=== PATIENT | male | born 1990 | race Caucasian/White ===

== ENCOUNTER 2020-11-17 07:36 | Emergency (ER) | payer SELFPAY ==
[~2020-11-17] VITALS: Ht 165.1 cm; Wt 68.1 kg
[2020-11-17] MEDS ORDERED: NS IV 1000 ML 1,000 ML IV SCH (08:30)
[2020-11-17] MEDS ORDERED: LORazepam INJ 2 MG/ML (ATIVAN) VIAL IVP ONE (08:30)
--- NOTE | 2020-11-17 08:43 | ED Psychosocial ---
General Chief Complaint: General Problems/Pain Stated Complaint: ANXIETY,STOMACH PAIN,TENSE Nursing Triage Note: AMB TO ROOM REPORTS HAS HX OF ANXIETY HIS LEG ARE FEELNG NUMB C/O NAUSEA C/O ABD PAIN REPORTS WAS DRIVING TO [place] WHEN HE FELT LIKE HE MAY PASS OUT. HAS BEEN AT [facility] FOR [facility] 2 WEEKS AGO. PATIENT APPEARS ANXIOUS ON ADMIT. REPORTS HAS HAD BOTH COVID VACCINE. AMD DOES DRINK VODKA DAILY Source: patient Exam Limitations: no limitations History of Present Illness Date Seen by Provider: Nov 17, 2020 Time Seen by Provider: 07:55 Initial Comments Patient is a 30-year-old male who presents to the emergency department this morning with a chief complaint of feeling like he is having a panic attack, increasing anxiety diffuse muscle cramping paresthesias to his right side and left upper quadrant abdominal discomfort. Patient states that he woke up at 3:00 this morning with palpitations and as he was getting ready to go to work became nauseated and his symptoms all worsened. Patient has had a couple of prior episodes similar to this but not as severe. He was hospitalized about 2 weeks ago at [facility] with similar symptoms and tongue swelling, what sounds like carpopedal spasm. He has been taking trazodone to help alleviate his anxiety and he feels like it has helped for the most part. He states he has not been really compliant with therapy. He was spoken with about detox through [place] during his hospitalization and he feels like it may be a good idea. He drinks at most a little over a pint of alcohol a day but has been cutting back over the last several weeks to drinking only a few shots last night. He states that he started drinking at around 8. He also uses marijuana occasionally. 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 He denies any recent fevers, chills, productive cough. He does state that he "throws up phlegm" every morning. He states he is "itchy". No problems with bowel or bladder. No sick contacts. All other review of systems reviewed and negative except as stated above. Timing/Duration: just prior to arrival Severity: severe Associated Symptoms: anxiety, suicidal ideation Allergies and Home Medications Allergies Coded Allergies: Penicillins (Verified Allergy, Unknown, 11/17/20) Home Medications Hydroxyzine Pamoate 25 Mg Capsule, 25 MG PO Q6H PRN for ANXIETY Prescribed by: PETROS RAO on 11/17/20 1037 Ondansetron 4 Mg Tab.rapdis, 4 MG PO Q8H PRN for nausea and vomiting Prescribed by: PETROS RAO on 11/17/20 1037 Patient Home Medication List Home Medication List Reviewed: Yes Review of Systems Constitutional: see HPI EENTM: nose congestion Respiratory: no symptoms reported Cardiovascular: palpitations Gastrointestinal: LUQ Genitourinary: no symptoms reported Musculoskeletal: no symptoms reported Skin: pruritus Psychiatric/Neurological: Anxiety, Depressed, Paresthesia (Right-sided), Tremors Past Iakggck-Pjcebt-Dmuwfq Hx Patient Social History Alcohol Use: Regular Use Alcohol Beverage of Choice: Vodka Smoking Status: Never a Smoker Recent Infectious Disease Expo: No Past Medical History Surgeries: No Respiratory: No Cardiac: Yes Hypertension Genitourinary: No Gastrointestinal: No Musculoskeletal: No Endocrine: No HEENT: No Cancer: No Psychosocial: Yes Anxiety Integumentary: No Physical Exam Vital Signs - First Documented 11/17/20 07:47 Temp 36.8 Pulse 115 Resp 18 B/P (MAP) 211/133 (159) Pulse Ox 98 O2 Delivery Room Air Capillary Refill : Less Than 3 Seconds Height, Weight, BMI Height: '" Weight: lbs. oz. kg; 24.00 BMI Method: General Appearance: WD/WN, moderate distress HEENT: normal ENT inspection Neck: normal inspection Respiratory: lungs clear, normal breath sounds, no respiratory distress, no accessory muscle use Cardiovascular: regular rate, rhythm, tachycardia Gastrointestinal: non tender, soft Extremities: non-tender, normal inspection, no pedal edema, no calf tenderness, normal capillary refill Neurologic/Psychiatric: alert, normal mood/affect, oriented x 3 Appearance/Memory: appropriate appearance, appropriate insight, neat, no memory impairment Behavior/Eye Contact: cooperative, good eye contact, normal speech Thoughts/Hallucinations: normal thought pattern, auditory hallucinations (Patient states that he felt like he has been hearing some voices but he cannot understand what they say. He states that he felt like he might of heard diana ebody in the room with him yesterday.) Skin: normal color, warm/dry Progress/Results/Core Measures Results/Orders Lab Results Laboratory Tests Test 11/17/20 08:40 Range/Units White Blood Count 6.0 4.3-11.0 10^3/uL Red Blood Count 4.75 4.30-5.52 10^6/uL Hemoglobin 16.2 13.3-17.7 g/dL Hematocrit 46 40-54 % Mean Corpuscular Volume 97 80-99 fL Mean Corpuscular Hemoglobin 34 25-34 pg Mean Corpuscular Hemoglobin Concent 35 32-36 g/dL Red Cell Distribution Width 11.6 10.0-14.5 % Platelet Count 195 130-400 10^3/uL Mean Platelet Volume 9.3 9.0-12.2 fL Immature Granulocyte % (Auto) 0 % Neutrophils (%) (Auto) 80 H 42-75 % Lymphocytes (%) (Auto) 9 L 12-44 % Monocytes (%) (Auto) 9 0-12 % Eosinophils (%) (Auto) 1 0-10 % Basophils (%) (Auto) 1 0-10 % Neutrophils # (Auto) 4.8 1.8-7.8 10^3/uL Lymphocytes # (Auto) 0.6 L 1.0-4.0 10^3/uL Monocytes # (Auto) 0.6 0.0-1.0 10^3/uL Eosinophils # (Auto) 0.1 0.0-0.3 10^3/uL Basophils # (Auto) 0.0 0.0-0.1 10^3/uL Immature Granulocyte # (Auto) 0.0 0.0-0.1 10^3/uL Sodium Level 137 135-145 MMOL/L Potassium Level 3.7 3.6-5.0 MMOL/L Chloride Level 99 98-107 MMOL/L Carbon Dioxide Level 21 21-32 MMOL/L Anion Gap 17 H 5-14 MMOL/L Blood Urea Nitrogen 11 7-18 MG/DL Creatinine 0.83 0.60-1.30 MG/DL Estimat Glomerular Filtration Rate > 60 BUN/Creatinine Ratio 13 Glucose Level 83 70-105 MG/DL Calcium Level 10.2 H 8.5-10.1 MG/DL Corrected Calcium 8.5-10.1 MG/DL Total Bilirubin 1.5 H 0.1-1.0 MG/DL Aspartate Amino Transf (AST/SGOT) 302 H 5-34 U/L Alanine Aminotransferase (ALT/SGPT) 190 H 0-55 U/L Alkaline Phosphatase 62 40-136 U/L Total Protein 8.4 H 6.4-8.2 GM/DL Albumin 4.8 H 3.2-4.5 GM/DL Serum Alcohol 18 H <10 MG/DL My Orders Orders - PETROS RAO MD Comprehensive Metabolic Panel (11/17/20 08:23) Ed Iv/Invasive Line Start (11/17/20 08:23) Cbc With Automated Diff (11/17/20 08:23) Ns Iv 1000 Ml (Sodium Chloride 0.9%) (11/17/20 08:30) Lorazepam Injection (Ativan Injection) (11/17/20 08:30) Alcohol (11/17/20 08:26) Lisinopril Tablet (Zestril Tablet) (11/17/20 10:00) Metoprolol Tartrate Injection (Lopressor (11/17/20 11:30) Medications Given in ED Vital Signs/I&O Blood Pressure Mean: 159 Progress Progress Note : Time: 09:58 Progress Note Patient reevaluated, feels much better after 1 mg of Ativan and IV fluids. Blood pressure is still up his diastolic is 117. Patient believes that after he took his lisinopril this morning he probably vomited it back up so we will give him another dose this morning. I want to keep him another 30 minutes and see if his blood pressure comes down a little bit more. I talked to him extensively about seeking detox at addiction treatment center in [facility]. He verbalizes understanding. I strongly encouraged him as his liver functions are quite elevated and are persistently so reflecting his damage from alcohol use. I talked to him about sending him home with some Vistaril to use as needed for anxiety. He is comfortable with this plan of care. All questions are sought and answered. Departure Impression Primary Impression: Alcohol withdrawal Qualified Codes: F10.230 - Alcohol dependence with withdrawal, uncomplicated Additional Impressions: High blood pressure Qualified Codes: I10 - Essential (primary) hypertension Anxiety Disposition: 01 HOME, SELF-CARE Condition: Stable Departure-Patient Inst. Decision time for Depature: 10:34 Referrals: [facility] [facility],LOCAL PHYSICIAN (PCP) Primary Care Physician Patient Instructions: Alcohol Withdrawal, Alcohol Use Disorder ED Add. Discharge Instructions: Drink plenty of fluids to stay well-hydrated today. I have given you a prescription for Zofran you can use this every 8 hours as needed for nausea. I have also given your prescription for Vistaril which you can use for anxiety symptoms. Please call the addiction treatment center on Thursday for follow-up regarding alcohol withdrawal and further treatment. [facility] [address] [place] [address] Come back to the emergency department if your symptoms return, worsen or you have any new emergent complaints. Scripts Hydroxyzine Pamoate (Vistaril) 25 Mg Capsule 25 MG PO Q6H PRN for ANXIETY, #20 CAP Prov: PETROS RAO MD 11/17/20 Ondansetron (Ondansetron Odt) 4 Mg Tab.rapdis 4 MG PO Q8H PRN for nausea and vomiting, #20 TAB Prov: PETROS RAO MD 11/17/20 PETROS RAO MD Nov 17, 2020 08:43
[2020-11-17 09:08] LABS: BASOPHILS % (AUTO) 1 % (0-10); EOSINOPHILS # (AUTO) 0.1 10^3/uL (0.0-0.3); EOSINOPHILS % (AUTO) 1 % (0-10); HEMATOCRIT 46 % (40-54); HEMOGLOBIN 16.2 g/dL (13.3-17.7); LYMPHOCYTES # (AUTO) 0.6 10^3/uL (1.0-4.0); LYMPHOCYTES % (AUTO) 9 % (12-44); MEAN CORPUSCULAR HEMOGLOBIN 34 pg (25-34); MEAN CORPUSCULAR HGB CONC 35 g/dL (32-36); MEAN CORPUSCULAR VOLUME 97 fL (80-99); MEAN PLATELET VOLUME 9.3 fL (9.0-12.2); MONOCYTES # (AUTO) 0.6 10^3/uL (0.0-1.0); MONOCYTES % (AUTO) 9 % (0-12); NEUTROPHILS # (AUTO) 4.8 10^3/uL (1.8-7.8); NEUTROPHILS % (AUTO) 80 % (42-75); PLATELET COUNT 195 10^3/uL (130-400)
[2020-11-17 09:27] LABS: ALANINE AMINOTRANSFERASE 190 U/L (0-55); ALBUMIN 4.8 GM/DL (3.2-4.5); ALKALINE PHOSPHATASE 62 U/L (40-136); BILIRUBIN,TOTAL 1.5 MG/DL (0.1-1.0); BUN/CREATININE RATIO 13; CALCIUM 10.2 MG/DL (8.5-10.1); CARBON DIOXIDE 21 MMOL/L (21-32); CHLORIDE 99 MMOL/L (98-107); CREATININE SERUM 0.83 MG/DL (0.60-1.30); GFR ESTIMATED > 60; GLUCOSE 83 MG/DL (70-105); POTASSIUM 3.7 MMOL/L (3.6-5.0); SODIUM 137 MMOL/L (135-145); TOTAL PROTEIN 8.4 GM/DL (6.4-8.2)
[2020-11-17] MEDS ORDERED: lisINopril 10 MG (PRINIVIL) TABLET PO ONE (10:00)
[2020-11-17] MEDS ORDERED: HYDR25CA PO (10:37)
[2020-11-17] MEDS ORDERED: ONDA4TAB11 PO (10:37)
[2020-11-17] MEDS ORDERED: meTOprolol 5 MG/5 ML (LOPRESSOR) VIAL IV ONE (11:30)
[2020-11-17 13:06] VITALS: BP 160/112
== END 2020-11-17 13:10 | disposition home or self-care (01) ==
LOC: ER 07:39
DX: F10.239 Alcohol dependence with withdrawal, unspecified (principal); I10 Essential (primary) hypertension; F41.9 Anxiety disorder, unspecified; Z88.0 Allergy status to penicillin
CPT/HCPCS: 80053; 85025; 99284; G0480; 36415; 80320

== ENCOUNTER 2021-01-01 15:00 | Emergency (ER) | payer SELFPAY ==
[~2021-01-01] VITALS: Ht 162 cm; Wt 65.0 kg
[~2021-01-01 15:00] MED LIST: HYDR25CA PO; ONDA4TAB11 PO
--- NOTE | 2021-01-01 15:36 | ED General ---
General Chief Complaint: General Problems/Pain Stated Complaint: CRAMPING/FAINTING Nursing Triage Note: PT STATES HE IS SHAKEY AND HAS THE FEELING LIKE HE IS GOING TO PASS OUT. HAS BEEN TO MULTIPLE ER'S FOR THIS PROBLEM. HX OF ANXIETY. Nursing Sepsis Screen: No Definite Risk Source of Information: Patient Exam Limitations: No Limitations History of Present Illness Date Seen by Provider: Jan 01, 2021 Time Seen by Provider: 15:10 Initial Comments Patient is a 30-year-old male who presents to the emergency department today with a chief complaint of feeling shaky and his hands and feet cramping up and fainting episodes. Patient states that he is trying to cut down on his drinking, he used to drink about 1/5 of vodka and a few beers or shots daily. He states in the last 2 to 3 weeks he is cutting down significantly. He is only had a couple of drinks a day or a couple of shots a day. Patient complains of having these episodes where his hands and feet cramp up and fainting spells over the course of the last month. He states he had an episode this morning where he became very short of breath diaphoretic and his hands cramped up while driving. EMS came and checked on him and he decided to come to the emergency room for further evaluation. He did have a syncopal event about 3 weeks ago where he passed out in the yard at his friend's house. He states when he woke up he did not know who or where he was. I asked the patient if he is been told that he has had any seizure-like activity he states that he does not know. He denies any complaints of recent illness. No recent injuries. He is followed at an [facility] in [place]. He has not had an appointment in several thus. He is trying to get one. Patient also complains of some left upper quadrant pain that has been present for several months. No bowel or bladder complaints. He states he did have a slightly bloody stool 2 or 3 days ago but none since. He states that he feels currently a little nauseated. He took 2 Zofran around 130 this afternoon. No thoughts of self-harm or harming anyone else. He states occasionally he feels like he may hear voices but he is not concerned about this. He states occasionally he sees things out of the corner of his eye, no tactile hallucinations. He does see a therapist at the [facility] in [place]. He is on medications for depression and anxiety. All other review of systems reviewed and negative except as stated above. Timing/Duration: 1-3 Hours Severity: Moderate Associated Systoms: Nausea/Vomiting Allergies and Home Medications Allergies Coded Allergies: Penicillins (Verified Allergy, Unknown, 11/17/20) Home Medications Hydroxyzine Pamoate 25 Mg Capsule, 25 MG PO Q6H PRN for ANXIETY Prescribed by: PETROS RAO on 11/17/20 1037 Ondansetron 4 Mg Tab.rapdis, 4 MG PO Q8H PRN for nausea and vomiting Prescribed by: PETROS RAO on 11/17/20 1037 Patient Home Medication List Home Medication List Reviewed: Yes Review of Systems Review of Systems Constitutional: see HPI EENTM: no symptoms reported Respiratory: no symptoms reported Cardiovascular: no symptoms reported Gastrointestinal: nausea Genitourinary: no symptoms reported Musculoskeletal: no symptoms reported Skin: no symptoms reported Psychiatric/Neurological: Anxiety, Depressed, Paresthesia All Other Systems Reviewed Negative Unless Noted: Yes Past Fntsbml-Ugwquz-Cuublm Hx Patient Social History Alcohol Use: Occasionally Uses Number of Drinks Today: FF Alcohol Beverage of Choice: Vodka Drug of Choice: POT Smoking Status: Never a Smoker Recent Infectious Disease Expo: No Past Medical History Surgeries: No Respiratory: No Cardiac: No Hypertension Neurological: No Genitourinary: No Gastrointestinal: No Musculoskeletal: No Endocrine: No HEENT: No Cancer: No Psychosocial: Yes Anxiety Integumentary: No Physical Exam Vital Signs Vital Signs - First Documented 01/01/21 15:08 Temp 37.1 Pulse 80 Resp 16 B/P (MAP) 171/125 (140) Pulse Ox 99 O2 Delivery Room Air Capillary Refill : Less Than 3 Seconds Height, Weight, BMI Height: '" Weight: lbs. oz. kg; 24.00 BMI Method: General Appearance: No Apparent Distress, WD/WN Eyes: Bilateral Eye Normal Inspection, Bilateral Eye PERRL, Bilateral Eye EOMI HEENT: PERRL/EOMI, Normal ENT Inspection Neck: Full Range of Motion Respiratory: Lungs Clear, Normal Breath Sounds, No Accessory Muscle Use, No Respiratory Distress Cardiovascular: Regular Rate, Rhythm Gastrointestinal: Normal Bowel Sounds, No Organomegaly, Soft, Tenderness (Mild tenderness in the left upper quadrant.) Extremity: Normal Inspection, Normal Range of Motion Neurologic/Psychiatric: Alert, Oriented x3, No Motor/Sensory Deficits, Normal Mood/Affect, logging specialist II-XII Norm as Tested, Other (Fine tremor noted bilateral upper extremities) Skin: Normal Color, Warm/Dry Progress/Results/Core Measures Suspected Sepsis Recent Fever Within 48 Hours: No Infection Criteria Present: None New/Unexplained Altered Menta: No Sepsis Screen: No Definite Risk SIRS Temperature: Pulse: 80 Respiratory Rate: 16 Blood Pressure 171 /125 Mean: 140 Laboratory Tests 01/01/21 15:33: Creatinine 0.84, Total Bilirubin 1.5H Results/Orders Lab Results Laboratory Tests Test 01/01/21 15:33 Range/Units Sodium Level 139 135-145 MMOL/L Potassium Level 3.5 L 3.6-5.0 MMOL/L Chloride Level 100 98-107 MMOL/L Carbon Dioxide Level 21 21-32 MMOL/L Anion Gap 18 H 5-14 MMOL/L Blood Urea Nitrogen 9 7-18 MG/DL Creatinine 0.84 0.60-1.30 MG/DL Estimat Glomerular Filtration Rate > 60 BUN/Creatinine Ratio 11 Glucose Level 88 70-105 MG/DL Calcium Level 10.9 H 8.5-10.1 MG/DL Corrected Calcium 8.5-10.1 MG/DL Total Bilirubin 1.5 H 0.1-1.0 MG/DL Aspartate Amino Transf (AST/SGOT) 144 H 5-34 U/L Alanine Aminotransferase (ALT/SGPT) 109 H 0-55 U/L Alkaline Phosphatase 63 40-136 U/L Total Protein 9.2 H 6.4-8.2 GM/DL Albumin 5.0 H 3.2-4.5 GM/DL Serum Alcohol 50 H <10 MG/DL My Orders Orders - PETROS RAO MD Comprehensive Metabolic Panel (01/01/21 15:33) Ekg Tracing (01/01/21 15:33) Alcohol (01/01/21 15:33) Ondansetron Injection (Zofran Injectio (01/01/21 16:30) Medications Given in ED Current Medications Medications Dose Ordered Sig/Donald Route Start Time Stop Time Status Last Admin Dose Admin Ondansetron HCl 8 mg ONCE ONCE IVP 01/01/21 16:30 01/01/21 16:31 DC 01/01/21 16:22 8 MG Vital Signs/I&O 01/01/21 15:08 Temp 37.1 Pulse 80 Resp 16 B/P (MAP) 171/125 (140) Pulse Ox 99 O2 Delivery Room Air Capillary Refill : Less Than 3 Seconds Blood Pressure Mean: 140 Progress Note : Time: 17:12 Progress Note Reevaluated patient after medications for nausea. He is quite tearful when I talked to him about the fact that his alcoholism is causing probably the majority of his symptoms. I again offered contact information for [place] addiction treatment center. He states he would like to think about it. I counseled him on alcohol use and specifically mentioned his elevated liver functions and the fact that once these start to elevate he is doing consistent damage to his liver with any drink of alcohol he takes. He verbalizes understanding. He states that he will consider seeking treatment. Patient has no clinical or objective findings to warrant admission to the hospital at this time. I have encouraged him to drink plenty of healthy fluids to stay well- hydrated. I have given him return precautions. He verbalized understanding. All questions are sought and answered. Patient is stable for discharge. Departure Impression Primary Impression: Nausea & vomiting Qualified Codes: R11.2 - Nausea with vomiting, unspecified Additional Impression: Alcohol dependence Qualified Codes: F10.220 - Alcohol dependence with intoxication, uncomplicated Disposition: 01 HOME, SELF-CARE Condition: Stable Departure-Patient Inst. Decision time for Depature: 17:14 Referrals: [facility],LOCAL PHYSICIAN (PCP) Primary Care Physician Patient Instructions: Alcohol Abuse and Alcoholism (DC) Add. Discharge Instructions: Follow-up with the [facility] tomorrow as we talked about, you should also follow-up with your therapist. You can also follow-up with [facility] here in [place]. Contact information has been provided. Please try and stop drinking alcohol. Drink plenty of healthy fluids to stay w ell-hydrated. Use your Zofran at home as needed for nausea. Return to the emergency room for any new, concerning or emergent complaints. PETROS RAO MD Jan 01, 2021 15:36
[2021-01-01] MEDS ORDERED: ONDANSETRON 4 MG/2 ML (SDV) Z0FRAN IVP ONE (16:30)
[2021-01-01 16:46] LABS: CHLORIDE 100 MMOL/L (98-107); POTASSIUM 3.5 MMOL/L (3.6-5.0); SODIUM 139 MMOL/L (135-145)
[2021-01-01 16:47] LABS: CALCIUM 10.9 MG/DL (8.5-10.1)
[2021-01-01 16:48] LABS: GLUCOSE 88 MG/DL (70-105)
[2021-01-01 16:49] LABS: CARBON DIOXIDE 21 MMOL/L (21-32); TOTAL PROTEIN 9.2 GM/DL (6.4-8.2)
[2021-01-01 16:50] LABS: BILIRUBIN,TOTAL 1.5 MG/DL (0.1-1.0)
[2021-01-01 16:52] LABS: ALKALINE PHOSPHATASE 63 U/L (40-136); CREATININE SERUM 0.84 MG/DL (0.60-1.30); GFR ESTIMATED > 60
[2021-01-01 16:53] LABS: BUN/CREATININE RATIO 11
[2021-01-01 16:55] LABS: ALANINE AMINOTRANSFERASE 109 U/L (0-55)
[2021-01-01 17:23] VITALS: BP 149/112
== END 2021-01-01 17:23 | disposition home or self-care (01) ==
LOC: EDUNIT# 15:00 → ER 15:02
DX: R11.2 Nausea with vomiting, unspecified (principal); F10.20 Alcohol dependence, uncomplicated; I10 Essential (primary) hypertension; F41.9 Anxiety disorder, unspecified; Z88.0 Allergy status to penicillin; Z79.899 Other long term (current) drug therapy
CPT/HCPCS: 80053; G0480; 36415; 80320

== ENCOUNTER 2021-01-06 01:46 | Emergency (ER) | payer SELFPAY ==
[~2021-01-06] VITALS: Ht 162 cm; Wt 63.0 kg
[2021-01-06] MEDS ORDERED: TETANUS,DIPTH,PERTUSS P/F (BOOSTRIX) 0.5 ML VIAL IM ONE (02:15)
[2021-01-06] MEDS ORDERED: CLIN300C12 PO (03:18)
[2021-01-06] MEDS ORDERED: RX-MUPIROCIN (BACTROBAN) 2% OINT 22 GM TUBE TOP STA (03:18)
[2021-01-06] MEDS ORDERED: RX-CLINDAMYCIN 150 MG (CLEOCIN) CAP PPK#4 PO STA (03:18)
[2021-01-06] MEDS ORDERED: MUPI22OI2 TP (03:18)
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
[2021-01-06 03:31] VITALS: BP 162/105
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
== END 2021-01-06 03:34 | disposition home or self-care (01) ==
LOC: EDUNIT# 01:46 → ER 01:48
DX: S01.80XA Unspecified open wound of other part of head, initial encounter (principal); S80.212A Abrasion, left knee, initial encounter; I10 Essential (primary) hypertension; F41.9 Anxiety disorder, unspecified; F17.210 Nicotine dependence, cigarettes, uncomplicated; Z79.899 Other long term (current) drug therapy; Z88.0 Allergy status to penicillin; Z23 Encounter for immunization; W50.0XXA Accidental hit or strike by another person, initial encounter; Y92.511 Restaurant or cafe as the place of occurrence of the external cause
CPT/HCPCS: 70450; 70486; 72125; 90471; 90715

== ENCOUNTER → 2021-10-07 | Outpatient (CLI) | payer SELFPAY ==
[~2021-10-07] MED LIST changes: +CLIN-144 PO; +GADOTERATE 0.5 MMOL/ML (CLARISCAN) 15 ML VIAL IV ONE; +MUPI22OI2 TP
--- NOTE | 2021-10-07 14:13 | Diagnostic Imaging Report ---
CLINICAL INDICATION: Patient with seizures offset one half years ago. Last seizure 2 weeks ago. Patient is medicated. Exam: MRI of the brain performed without and with 12 cc of Clariscan IV contrast. Sequences include axial DWI, ADC map, coronal gradient echo, axial T2, axial FLAIR, axial T1, axial T1 post IV contrast, coronal T1 fat-sat post IV contrast, and sagittal T1 post IV contrast. Comparison: CT scan of the head, face and cervical spine without contrast dated 01/06/2021. Findings: There is motion artifact limiting evaluation of the axial FLAIR sequence. There is no evidence of acute cerebral infarct, intracranial hemorrhage, or gross mass effect. There is no abnormal IV contrast enhancement. The brain parenchymal volume appears appropriate for patient's age. There is normal romano-white matter distinction. There is no significant midline shift or herniation. There is no evidence of hydrocephalus. The basal cisterns are unremarkable. The skull, extracranial soft tissue, and orbits are unremarkable. There is minimal mucosal thickening involving the left maxillary sinus and ethmoid sinus. Temporal bones show no significant abnormality. IMPRESSION: Minimal paranasal sinus disease. Otherwise, unremarkable MRI of the brain. Dictated by: Dictated on workstation # [id number]
== END ==
LOC: RAD 13:15
PROVIDERS: ATTEND Nurse Practitioner Family
DX: R56.9 Unspecified convulsions (principal)
CPT/HCPCS: 70553

== ENCOUNTER 2022-04-07 09:39 | Emergency (ER) | payer SELFPAY ==
[~2022-04-07 09:39] MED LIST changes: -GADOTERATE 0.5 MMOL/ML (CLARISCAN) 15 ML VIAL IV ONE
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
[2022-04-07 11:58] VITALS: BP 140/97
== END 2022-04-07 11:58 | disposition home or self-care (01) ==
LOC: EDUNIT# 09:39 → ER 09:41
DX: S60.221A Contusion of right hand, initial encounter (principal); S60.211A Contusion of right wrist, initial encounter; Y04.0XXA Assault by unarmed brawl or fight, initial encounter
CPT/HCPCS: 73110